=== PATIENT | male | born 1995 | race American Indian/Alaskan Native ===

== ENCOUNTER 2018-09-18 23:56 | Emergency (ER) | payer SELFPAY ==
[2018-09-19] MEDS ORDERED: BICILLIN L-A IM ONE (07:38)
[2018-09-19] MEDS ORDERED: IBUPROFEN PO ONE (07:38)
--- NOTE | 2018-09-19 08:00 | Emergency Department Report ---
Abscess Boil HPI - HPI Chief Complaint: Dental/Oral Stated Complaint: ABCESS IN MOUTH WITH HEADACHE Time Seen by Provider: 09/19/18 07:38 Duration: 3 Days Location: Other Severity: Mild History: Yes Pain, Yes Purulent Drainage, No Fever, No Numbness, No Foreign Body, No Previous History, No Insect Bite HPI: patient is a 23-year-old male who comes to the ER with an mandibular gingival abscess and pain. It is over the dentition #11 and 12. No trismus. ABCs intact. Taking by mouth without difficulty. Home Medications: Previous Rx's Medication Instructions Recorded Last Taken Type Amoxicillin [Trimox CAP] 500 mg PO BID #20 capsule 09/19/18 Unknown Rx Allergies/Adverse Reactions: Allergies Allergy/AdvReac Type Severity Reaction Status Date / Time apple Allergy Itching Verified 09/18/18 23:58 pecan nut Allergy Itching Verified 09/18/18 23:58 ED Review of Systems ROS: Stated complaint: ABCESS IN MOUTH WITH HEADACHE Other details as noted in HPI Comment: All other systems reviewed and negative ED Past Medical Hx - Past Medical History Previous Medical History?: Yes Additional medical history: bronchitis - Surgical History Past Surgical History?: No - Social History Smoking Status: Never Smoker Substance Use Type: None - Medications Home Medications: Home Medications Medication Instructions Recorded Confirmed Last Taken Type Amoxicillin [Trimox CAP] 500 mg PO BID #20 capsule 09/19/18 Unknown Rx ED Abscess Boil Physical Exam - Exam General: Vital signs noted. No distress. Alert and acting appropriately. Exam: Yes Normal Neurologic Exam, Yes Normal Circulation, No Tenderness, No Fluctuance, No Surrounding Cellulites/Erythema, No Lymphangitis, No Crepitation, No Heart Murmur Exam: MANDIBULAR GINV. ABSCESS OVER NO 11/12. ABC INTACT. VSS. NO FEVER. TAKING PO. CONTROLLING SECRETIONS. NO LUDWIGS/PHAYRN. ABSCESS. NO LYMPHADENOPATHY ED Course Vital Signs 09/18/18 23:58 Temperature 98.1 F Pulse Rate 101 H Respiratory 18 Rate Blood Pressure 150/101 O2 Sat by Pulse 98 Oximetry Critical care attestation.: If time is entered above; I have spent that time in minutes in the direct care of this critically ill patient, excluding procedure time. ED Medical Decision Making - Medical Decision Making EDUCATED ON POST DISCHARGE CARE MEDICATED IN ER DC HOME WITH DC PLAN OF CARE AND LIST OF DMD IN AREA Vital Signs 09/18/18 23:58 Temperature 98.1 F Pulse Rate 101 H Respiratory 18 Rate Blood Pressure 150/101 O2 Sat by Pulse 98 Oximetry ED Disposition Clinical Impression: Dental disease Disposition: TO HOME OR SELFCARE Is pt being admited?: No Does the pt Need Aspirin: No Condition: Undetermined Instructions: Dental Abscess (ED), Dental Caries (ED) Additional Instructions: DIET TOLERATED MEDS ORDERED TODAY IN ER FOLLOW INSTRUCTIONS ON THE BOTTLE FOLLOW UP PCP WITHIN 48 HOURS TO ENSURE YOU ARE GETTING BETTER ACTIVITY TOLERATED MOTRIN OR TYLENOL FOR PAIN OR FEVER RETURN TO THE ER FOR WORSENING SYMPTOMS NOT RELIEVED BY YOUR MEDICATIONS. FOLLOW UP WITH DENTIST WE DISCUSSED SEE ATTACHED LIST OF REFERRALS Referrals: JOEY THOMPSON MD [Primary Care Provider] - 3-5 Days Time of Disposition: 07:59
[2018-09-19 08:44] VITALS: BP 136/84
== END 2018-09-19 08:42 | disposition home or self-care (01) ==
LOC: ED 23:56
DX: K08.9 Disorder of teeth and supporting structures, unspecified (principal); Z91.018 Allergy to other foods; Z91.010 Allergy to peanuts
CPT/HCPCS: 96372; 99282; J0561